=== PATIENT | male | born 1945 | race Caucasian/White ===

== ENCOUNTER → 2016-08-25 | Outpatient (CLI) | payer OTHER, MEDICAID ==
[~2016-08-25] MED LIST: IOPAMIDOL (ISOVUE-300) 100 ML BTL IV ONE
--- NOTE | 2016-08-25 15:37 | CT ---
1. CT Scan of the Chest (With Contrast) Clinical Indications: Unexplained weight loss, R 63.4 Technique: During machine power injection of 90 mL Isovue 300 intravenously, multidetector helical C T imaging was performed from the superior thoracic inlet to the diaphragm. The radiologist manipulat ed images at the computer workstation. Dose reduction techniques were utilized. Findings: Biapical reasonably symmetric fibronodular changes likely related to old granulomatous dise ase. A 6 mm noncalcified nodule in the right upper lobe (image 108 series 4) is likely of no clinical significance in isolation. There is no mediastinal or hilar adenopathy. There is no axillary or inte rnal mammary adenopathy. There is no infiltrate, consolidation or pleural effusion. There is no bron chitis, bronchiectasis or mucous plugging. Heart size is normal without pericardial effusion. No intr acardiac filling thrombus there is no evidence for chronic pulmonary embolic disease is identified. The thoracic aorta is normal in size without chronic dissection or aneurysm. Skeletal evaluation is u nremarkable except for a single small bone island in the T8 vertebral body. There is a 14 x 11 [address] nd nodule posterior to the right thyroid lobe that could possibly represent a parathyroid adenoma, in the tracheoesophageal groove. Impression: 1. No malignancy identified. 2. 14 mm nodule posterior to the right thyroid lobe. This could be evaluated by ultrasound, if clinic ally indicated. This could potentially represent a parathyroid adenoma. 2. CT Scan of the Abdomen and Pelvis (With Contrast) Clinical Indications: Unexplained weight loss, changes in bowel habits Comparison: May 09, 2011 Technique: 90 mL of Isovue 300 were given intravenously by machine power injection. Multidetector helical CT imaging was performed from the diaphragm to the symphysis pubis. Dose reduction technique s were utilized. Findings: Abdomen: A tiny cyst in the dome of the right lobe of the liver and adjacent to the anterior gallblad [place] fossa are stable , overall liver size remains normal and there is no biliary obstruction. A 15mm cyst involving the anterior lip of the spleen and a 54mm cyst involving the lower pole of the right [place] are slightly larger. A left lower pole nonobstructive renal stone has enlarged from prior 12 x 4.7 x 12 mm to current 14 x 10 x 13 mm. There is no evidence for renal cortical scarring or pyeloneph ritis. The pancreas remains normal. The spleen remains normal in size and homogeneous. There is no ev idence for aortic aneurysm or dissection. A small nodule in the right adrenal gland is stable measuri ng approximately 23 mm. and likely represents a benign adenoma. There is normal contrast opacificatio n of the superior and inferior mesenteric arteries, of the celiac axis, of the splenic and portal vei ns and inferior mesenteric vein. The hepatic veins are stable, gracile and patent. Or retroperitoneal adenopathy. Pelvis: The urinary bladder is unremarkable. There is chronic prostamegaly that again indents the ur inary bladder base. There is no urinary bladder trabeculation. There is no urinary bladder stone form ation. There is a stable left 2.8 cm urinary bladder diverticulum. No free fluid in the pelvis. Pelv ic small bowel loops are normal. The patient has a redundant sigmoid without diverticulosis. Bone window evaluation: Negative, except for degenerative disk disease at L5-S1 and mild spondylolist hesis at L4-L5. Impression: No malignancy identified. Please see above. General information for patients regarding this examination can be found at [email or web address]. If you have questions or comments about this report, please contact me at [phone] (hospital) or [phone] (cell).
== END ==
LOC: FIMAGING 13:02
PROVIDERS: ATTEND Internal Medicine Rheumatology
DX: E04.1 Nontoxic single thyroid nodule (principal)
CPT/HCPCS: 71260; 74177; Q9967

== ENCOUNTER → 2016-09-23 | Outpatient (CLI) | payer OTHER, MEDICAID | LOC: BMCIMAGING 11:52 | PROVIDERS: ATTEND Internal Medicine Rheumatology | DX: E04.2 Nontoxic multinodular goiter (principal) | CPT/HCPCS: 76536-PO ==

== ENCOUNTER 2017-01-01 12:29 | Day surgery (SDC) | payer OTHER, MEDICAID ==
[2017-01-01] MEDS ORDERED: MIDAZOLAM 2 MG/2 ML VIAL IVP ONE (12:34)
[2017-01-01] MEDS ORDERED: fentaNYL 100 MCG/2 ML INJ IVP ONE (12:34)
[2017-01-01] MEDS ORDERED: PROPOFOL 200 MG/20 ML VIAL IVP ONE (12:34)
[2017-01-01] MEDS ORDERED: BENZOCAINE UNIT DOSE SPRAY HURRICAINE MM ONE (12:34)
[2017-01-01] MEDS ORDERED: NS 500 ML IV ONE (12:34)
--- NOTE | 2017-01-01 12:49 | CPEKG ---
Heart Rate: 145 RR Interval: 414 QRSD Interval: 82 QT Interval: 292 QTC Interval: 454 QRS [place]: 18 T Wave [place]: 53 EKG Severity - ABNORMAL ECG - EKG Impression: ATRIAL FIBRILLATION Electronically Signed By: Rajiv Chapman 01-Jan-2017 12:56:01
[2017-01-01 13:24] LABS: ANION GAP 11 mEq/L (8-16); APTT 31.3 SEC (23.0-38.0); CALCIUM 10.2 mg/dL (8.5-10.4); CARBON DIOXIDE 22 mEq/l (22-31); CHLORIDE 109 mEq/L (97-110); CREATININE 0.8 mg/dL (0.7-1.3); GLOMERULAR FILTRATION RATE > 60; GLUCOSE 99 mg/dL (70-100); INR 1.14 (0.83-1.16); MAGNESIUM 2.2 mg/dL (1.6-2.3); POTASSIUM 4.6 mEq/L (3.5-5.2); PROTIME(PATIENT) 14.5 SEC (12.0-15.0); SODIUM 142 mEq/L (134-144)
[2017-01-01] MEDS ORDERED: LIDOCAINE 2% 5 ML SDV ONE (14:00)
[2017-01-01] MEDS ORDERED: PROPOFOL 200 MG/20 ML VIAL ONE (14:11)
--- NOTE | 2017-01-01 14:23 | CPEKG ---
Heart Rate: 74 RR Interval: 811 P-R Interval: 148 QRSD Interval: 110 QT Interval: 376 QTC Interval: 418 P [place]: 31 QRS [place]: -21 T Wave [place]: 38 EKG Severity - ABNORMAL ECG - EKG Impression: SINUS RHYTHM EKG Impression: NONSPECIFIC INTRAVENTRICULAR CONDUCTION DELAY Electronically Signed By: Rajiv Chapman 01-Jan-2017 15:14:30
--- NOTE | 2017-01-01 15:08 | ECHO ---
[id number] + + [address] : : [facility] [address] : : [phone] + + Transesophageal Echocardiographic Report + + :Name: GODFREY GALEANO Study Date: 01/01/2017 01:58 PM : : Hospital Admission Number: [id number] : :: 1945 Gender: Male : :Age: 71 yrs Race: WH : :Reason For Study: Eval LV Fx : :History: Pre Cardioversion : + + Left Ventricle The left ventricular ejection fraction is normal. [place] No left atrial mass or thrombus visualized. No thrombus is detected in the left atrial appendage. Mitral Valve There is known posterior mitral valve leaflet prolapse with mild mitral regurgitation. There is no mitral valve stenosis. Conclusion A 2D transesophageal echocardiogram with color flow Doppler was performed. The left ventricular ejection fraction is normal. No left atrial mass or thrombus visualized. No thrombus is detected in the left atrial appendage. There is known posterior mitral valve leaflet prolapse with mild mitral regurgitation. Proceeded with successful elective DC cardioversion. Final Reading Physician: Gianni Moore signed on 01/01/2017 03:07 PM Ordering Physician: Jonathon Kathleen Performed By: Jonathon Kathleen MD
== END 2017-01-01 16:13 | disposition home or self-care (01) ==
LOC: FCATH 12:29
PROVIDERS: ATTEND Internal Medicine
PROC: B245ZZ4 Ultrasonography of Left Heart, Transesophageal (ICD-10-PCS; principal; 2017-01-01)
PROC: 5A2204Z Restoration of Cardiac Rhythm, Single (ICD-10-PCS; principal; 2017-01-01)
DX: I48.91 Unspecified atrial fibrillation (principal); E03.9 Hypothyroidism, unspecified; R53.82 Chronic fatigue, unspecified
CPT/HCPCS: J2704

== ENCOUNTER → 2017-01-01 | Outpatient (CLI) | payer OTHER, MEDICAID | LOC: BHFA 10:30 | PROVIDERS: ATTEND Internal Medicine Cardiovascular Disease | DX: I48.91 Unspecified atrial fibrillation (principal) ==